=== PATIENT | female | born 1930 | race Caucasian/White ===

== ENCOUNTER 2016-07-16 16:14 | Emergency (ER) | payer MEDICARE, BC ==
[2016-07-16] MEDS ORDERED: CELEXA 20MG20 MG/TA1 PO (16:59)
[2016-07-16] MEDS ORDERED: DULCOLAX10 M1 RC (17:00)
[2016-07-16] MEDS ORDERED: SYNTHROID0.05 MG PO (17:00)
[2016-07-16] MEDS ORDERED: ZESTRIL20 M1 PO (17:01)
[2016-07-16] MEDS ORDERED: CLOPIDOGREL PO (17:01)
[2016-07-16] MEDS ORDERED: PREPARATION H 81 SUP RC (17:04)
[2016-07-16] MEDS ORDERED: SYSTANE ULTRA 010 M1 OU (17:19)
[2016-07-16] MEDS ORDERED: ULTRAM50 M1 PO (17:20)
[2016-07-16] MEDS ORDERED: ZOCOR20 M1 PO (17:21)
[2016-07-16] MEDS ORDERED: MACROBID 100 M100 MG PO (17:30)
[2016-07-16] MEDS ORDERED: HALDOL 1MG T1 MG/TAB PO (17:30)
[2016-07-16] MEDS ORDERED: ZYRTEC10 M3 PO (17:40)
== END 2016-07-16 17:48 | disposition home or self-care (01) ==
LOC: ED 16:14
DX: N39.0 Urinary tract infection, site not specified (principal); R41.0 Disorientation, unspecified; J98.11 Atelectasis
CPT/HCPCS: A4353

== ENCOUNTER 2016-07-17 18:11 | Inpatient (IN) | payer MEDICARE, BC ==
[~2016-07-17 18:11] MED LIST changes: -CEFDINIR250 MG/5 M PO; -ROCEPHIN VIA1 G/VIAL IM
[2016-07-17 20:10] VITALS: BP 131/89
[2016-07-17 20:20] VITALS: BP 131/89
[2016-07-17 22:29] VITALS: BP 169/119
[2016-07-17 22:32] VITALS: BP 169/119
[2016-07-18 03:03] VITALS: BP 156/68
[2016-07-18 06:29] VITALS: BP 162/70
[2016-07-18 11:37] VITALS: BP 174/66
[2016-07-18 15:28] VITALS: BP 164/68
[2016-07-18 18:04] VITALS: BP 134/66
[2016-07-18 22:18] VITALS: BP 176/77
[2016-07-19 02:12] VITALS: BP 186/66
[2016-07-19 06:33] VITALS: BP 178/78
[2016-07-19 11:00] VITALS: BP 163/75
[2016-07-19] MEDS ORDERED: CEFDINIR250 MG/5 M PO (13:00)
[2016-07-19] MEDS ORDERED: ROCEPHIN VIA1 G/VIAL IM (13:07)
[2016-07-19 14:19] VITALS: BP 179/79
== END 2016-07-19 15:30 | disposition hospice, home (50) | DRG 689 ==
LOC: ED 18:11 → MED/SURG 18:59 → EDSTATUS 19:24 → MED/SURG 07-19 15:30
PROVIDERS: ADMIT Nurse Practitioner Family
DX: N39.0 Urinary tract infection, site not specified (principal); I21.4 Non-ST elevation (NSTEMI) myocardial infarction; F03.91 Unspecified dementia, unspecified severity, with behavioral disturbance; Z66 Do not resuscitate; Z51.5 Encounter for palliative care; F05 Delirium due to known physiological condition; I10 Essential (primary) hypertension; F32.9 Major depressive disorder, single episode, unspecified; K21.9 Gastro-esophageal reflux disease without esophagitis; R73.9 Hyperglycemia, unspecified; Z79.02 Long term (current) use of antithrombotics/antiplatelets; Z86.73 Personal history of transient ischemic attack (TIA), and cerebral infarction without residual deficits
CPT/HCPCS: J0696; J1650; J7030

== ENCOUNTER → 2016-07-17 | Outpatient (CLI) | payer MEDICARE, BC ==
[~2016-07-17] MED LIST: CEFDINIR250 MG/5 M PO; CELEXA 20MG20 MG/TA1 PO; CLOPIDOGREL PO; DULCOLAX10 M1 RC; HALDOL 1MG T1 MG/TAB PO; MACROBID 100 M100 MG PO; PREPARATION H 81 SUP RC; ROCEPHIN VIA1 G/VIAL IM; SYNTHROID0.05 MG PO; SYSTANE ULTRA 010 M1 OU; ULTRAM50 M1 PO; ZESTRIL20 M1 PO; ZOCOR20 M1 PO; ZYRTEC10 M3 PO
[2016-07-17 15:51] VITALS: BP 126/60
[2016-07-17 18:14] VITALS: BP 131/89
== END ==
LOC: AMSURD 15:45 → MSO 15:45
DX: E86.0 Dehydration (principal); R11.10 Vomiting, unspecified; R41.82 Altered mental status, unspecified
CPT/HCPCS: J0696; J2405; J7030

== ENCOUNTER → 2016-08-16 | Outpatient (CLI) | payer OTHER ==
[2016-07-19 14:19] VITALS: BP 179/79
[~2016-08-16] MED LIST changes: +CEFDINIR250 MG/5 M PO; +ROCEPHIN VIA1 G/VIAL IM
== END ==
LOC: LAB 07:50
DX: R41.0 Disorientation, unspecified (principal); R41.4 Neurologic neglect syndrome

== ENCOUNTER → 2016-10-18 | Outpatient (CLI) | payer MEDICARE, BC | LOC: LAB 12:58 → EDSTATUS 14:41 | DX: N39.0 Urinary tract infection, site not specified (principal) ==

== ENCOUNTER 2017-02-06 17:48 | Emergency (ER) | payer MEDICARE, BC ==
[~2017-02-06] VITALS: Wt 89.5 kg
[2017-02-06] MEDS ORDERED: ANUSOL HC CREAM30 GM REC (18:19)
[2017-02-06] MEDS ORDERED: LORAZEPAM INT2 MG/ML PO (18:24)
== END 2017-02-06 19:39 | disposition home or self-care (01) ==
LOC: ED 17:48
DX: Z04.3 Encounter for examination and observation following other accident (principal); F03.91 Unspecified dementia, unspecified severity, with behavioral disturbance; X58.XXXA Exposure to other specified factors, initial encounter; Y92.129 Unspecified place in nursing home as the place of occurrence of the external cause; Z86.73 Personal history of transient ischemic attack (TIA), and cerebral infarction without residual deficits

== ENCOUNTER → 2017-02-13 | Outpatient (CLI) | payer MEDICARE, BC ==
[~2017-02-13] MED LIST changes: +ANUSOL HC CREAM30 GM REC; +LORAZEPAM INT2 MG/ML PO
[2017-02-13 17:20] LABS: PH-URINE 6.5 (5.0 - 8.0); URINE APPEARANCE CLEAR; URINE BILIRUBIN NEGATIVE (NEGATIVE); URINE BLOOD NEGATIVE (NEGATIVE); URINE COLOR YELLOW; URINE GLUCOSE NEGATIVE (NEGATIVE); URINE KETONE NEGATIVE (NEGATIVE); URINE LEUKOCYTE ESTERASE NEGATIVE (NEGATIVE); URINE NITRATE NEGATIVE (NEGATIVE); URINE PROTEIN(semi-quant) NEGATIVE (NEGATIVE); URINE UROBILINOGEN NORMAL (NORMAL); URINE WBC 0-1 /hpf (0-3)
== END ==
LOC: LAB 17:15
PROVIDERS: Family Medicine
DX: R30.0 Dysuria (principal)

== ENCOUNTER 2017-07-10 13:57 | Emergency (ER) | payer MEDICARE, BC ==
[~2017-07-10] VITALS: Ht 167.6 cm; Wt 86.2 kg
[2017-07-10 14:32] LABS: BASO # 0.1 (0.02-0.10); EOS # 0.2 (0.04-0.40); EOS % 3.2 % (1.0-5.0); HEMATOCRIT 41.9 % (37.0-47.0); HEMOGLOBIN 13.8 g/dL (12.5-16.0); LYMPH# 2.4 (1.50-4.00); MEAN CELL VOLUME 99 fl (78-100); MEAN CORPUSCULAR HEMOGLOBIN 33 pg (27-31); MEAN CORPUSCULAR HGB CONC 33 g/dL (33-37); MEAN PLATELET VOLUME 9.9 fl (7.4-10.4); MONO # 0.8 (0.20-0.80); NEU # 4.1 (1.40-6.50); PLATELET COUNT 194 K/mm3 (130-400); RED BLOOD COUNT 4.24 M/mm3 (4.10-5.30); RED CELL DISTRIBUTION WIDTH 12.4 % (11.5-14.5); WHITE BLOOD COUNT 7.6 K/mm3 (4.8-10.8)
[2017-07-10 14:46] LABS: ALBUMIN 3.4 g/dL (3.5-5.0); BUN/CREATININE RATIO 10.5 (6.0-26.0); CALCIUM 8.7 mg/dL (8.4-10.2); POTASSIUM 4.4 mmol/L (3.6-5.0); TOTAL BILIRUBIN 0.3 mg/dL (0.2-1.3); TOTAL PROTEIN 7.1 g/dL (6.3-8.2)
[2017-07-10] MEDS ORDERED: SYSTANE 0.3-0.415 ML OU (14:59)
[2017-07-10] MEDS ORDERED: GUAIFEN-CODEIN118 ML PO (15:00)
[2017-07-10 15:05] LABS: URINE APPEARANCE CLEAR; URINE COLOR YELLOW; URINE GLUCOSE NEGATIVE (NEGATIVE); URINE PROTEIN(semi-quant) NEGATIVE (NEGATIVE)
[2017-07-10 15:06] LABS: URINE BILIRUBIN NEGATIVE (NEGATIVE); URINE BLOOD NEGATIVE (NEGATIVE); URINE KETONE NEGATIVE (NEGATIVE); URINE LEUKOCYTE ESTERASE TRACE (NEGATIVE); URINE NITRATE NEGATIVE (NEGATIVE); URINE UROBILINOGEN NORMAL (NORMAL)
== END 2017-07-10 15:54 | disposition home or self-care (01) ==
LOC: ED 13:57
PROVIDERS: Family Medicine; Physician Assistant
DX: F01.51 Vascular dementia, unspecified severity, with behavioral disturbance (principal); Z91.81 History of falling; E03.9 Hypothyroidism, unspecified; Z91.09 Other allergy status, other than to drugs and biological substances

== ENCOUNTER 2017-08-04 15:02 | Emergency (ER) | payer MEDICARE, BC ==
[~2017-08-04 15:02] MED LIST changes: +GUAIFEN-CODEIN118 ML PO; +SYSTANE 0.3-0.415 ML OU
[2017-08-04 16:02] LABS: BASO # 0.1 (0.02-0.10); EOS # 0.1 (0.04-0.40); EOS % 0.6 % (1.0-5.0); HEMATOCRIT 47.1 % (37.0-47.0); HEMOGLOBIN 15.3 g/dL (12.5-16.0); MEAN CELL VOLUME 100 fl (78-100); MEAN CORPUSCULAR HEMOGLOBIN 33 pg (27-31); MEAN CORPUSCULAR HGB CONC 33 g/dL (33-37); MEAN PLATELET VOLUME 10.7 fl (7.4-10.4); MONO # 1.5 (0.20-0.80); PLATELET COUNT 239 K/mm3 (130-400); RED BLOOD COUNT 4.69 M/mm3 (4.10-5.30); RED CELL DISTRIBUTION WIDTH 12.4 % (11.5-14.5); WHITE BLOOD COUNT 15.1 K/mm3 (4.8-10.8)
[2017-08-04 16:06] LABS: NEU # 11.4 (1.40-6.50)
[2017-08-04 16:11] LABS: ALBUMIN 3.9 g/dL (3.5-5.0); BUN/CREATININE RATIO 33.6 (6.0-26.0); CALCIUM 9.2 mg/dL (8.4-10.2); POTASSIUM 4.1 mmol/L (3.6-5.0); TOTAL BILIRUBIN 0.8 mg/dL (0.2-1.3); TOTAL PROTEIN 8.3 g/dL (6.3-8.2)
[2017-08-04 16:37] LABS: PH-URINE 5.5 (5.0 - 8.0); URINE APPEARANCE CLOUDY; URINE COLOR YELLOW; URINE GLUCOSE NEGATIVE (NEGATIVE); URINE KETONE NEGATIVE (NEGATIVE); URINE PROTEIN(semi-quant) 1+ mg/dL (NEGATIVE)
[2017-08-04 16:38] LABS: URINE BILIRUBIN NEGATIVE (NEGATIVE); URINE BLOOD TRACE (NEGATIVE); URINE LEUKOCYTE ESTERASE 1+ (NEGATIVE); URINE MUCUS PRESENT (NOT PRESENT); URINE NITRATE NEGATIVE (NEGATIVE); URINE UROBILINOGEN 1 mg/dL (NORMAL)
[2017-08-04 20:40] VITALS: BP 148/78
== END 2017-08-04 20:40 ==
LOC: ED 15:02
PROVIDERS: Physician Assistant
DX: N39.0 Urinary tract infection, site not specified (principal); F03.91 Unspecified dementia, unspecified severity, with behavioral disturbance; I25.10 Atherosclerotic heart disease of native coronary artery without angina pectoris; I10 Essential (primary) hypertension; Z91.09 Other allergy status, other than to drugs and biological substances; F32.9 Major depressive disorder, single episode, unspecified; F41.9 Anxiety disorder, unspecified; E03.9 Hypothyroidism, unspecified
CPT/HCPCS: J0696; J7030

== ENCOUNTER → 2017-08-15 | Outpatient (CLI) | payer MEDICARE, BC ==
[2017-08-04 20:40] VITALS: BP 148/78
[2017-08-15 08:35] LABS: PH-URINE 6.5 (5.0 - 8.0); URINE APPEARANCE CLEAR; URINE BILIRUBIN NEGATIVE (NEGATIVE); URINE BLOOD NEGATIVE (NEGATIVE); URINE COLOR YELLOW; URINE GLUCOSE NEGATIVE (NEGATIVE); URINE KETONE NEGATIVE (NEGATIVE); URINE LEUKOCYTE ESTERASE NEGATIVE (NEGATIVE); URINE NITRATE NEGATIVE (NEGATIVE); URINE PROTEIN(semi-quant) NEGATIVE (NEGATIVE); URINE UROBILINOGEN NORMAL (NORMAL)
[2017-08-15 08:36] LABS: URINE WBC 0-1 /hpf (0-3)
== END ==
LOC: LAB 06:00
PROVIDERS: Nurse Practitioner Family
DX: Z87.440 Personal history of urinary (tract) infections (principal)

== ENCOUNTER → 2017-08-21 | Outpatient (CLI) | payer MEDICARE, BC ==
[2017-08-04 20:40] VITALS: BP 148/78
[2017-08-21 14:41] LABS: ALBUMIN 3.3 g/dL (3.5-5.0); BUN/CREATININE RATIO 17.2 (6.0-26.0); CALCIUM 9.1 mg/dL (8.4-10.2); POTASSIUM 4.5 mmol/L (3.6-5.0); TOTAL BILIRUBIN 0.4 mg/dL (0.2-1.3); TOTAL PROTEIN 6.9 g/dL (6.3-8.2)
[2017-08-21 14:43] LABS: EOS # 0.1 (0.04-0.40); EOS % 1.7 % (1.0-5.0); HEMATOCRIT 43.4 % (37.0-47.0); HEMOGLOBIN 14.4 g/dL (12.5-16.0); LYMPH# 1.5 (1.50-4.00); MEAN CELL VOLUME 99 fl (78-100); MEAN CORPUSCULAR HEMOGLOBIN 33 pg (27-31); MEAN CORPUSCULAR HGB CONC 33 g/dL (33-37); MEAN PLATELET VOLUME 10.3 fl (7.4-10.4); MONO # 0.6 (0.20-0.80); NEU # 5.8 (1.40-6.50); PLATELET COUNT 262 K/mm3 (130-400); RED BLOOD COUNT 4.38 M/mm3 (4.10-5.30); RED CELL DISTRIBUTION WIDTH 12.7 % (11.5-14.5); WHITE BLOOD COUNT 8.1 K/mm3 (4.8-10.8)
== END ==
LOC: LAB 13:55
PROVIDERS: Family Medicine
DX: G81.94 Hemiplegia, unspecified affecting left nondominant side (principal); E03.9 Hypothyroidism, unspecified; K21.9 Gastro-esophageal reflux disease without esophagitis; F01.51 Vascular dementia, unspecified severity, with behavioral disturbance; R23.8 Other skin changes

== ENCOUNTER → 2017-08-22 | Outpatient (CLI) | payer MEDICARE, BC ==
[2017-08-04 20:40] VITALS: BP 148/78
[2017-08-22 09:51] LABS: URINE APPEARANCE HAZY; URINE BILIRUBIN NEGATIVE (NEGATIVE); URINE BLOOD NEGATIVE (NEGATIVE); URINE COLOR YELLOW; URINE GLUCOSE NEGATIVE (NEGATIVE); URINE KETONE NEGATIVE (NEGATIVE); URINE NITRATE NEGATIVE (NEGATIVE); URINE PROTEIN(semi-quant) NEGATIVE (NEGATIVE); URINE UROBILINOGEN NORMAL (NORMAL)
[2017-08-22 09:52] LABS: URINE LEUKOCYTE ESTERASE 2+ (NEGATIVE); URINE WBC >50 /hpf (0-3)
== END ==
LOC: LAB 08:30
PROVIDERS: Physician Assistant Medical
DX: G81.94 Hemiplegia, unspecified affecting left nondominant side (principal); R23.8 Other skin changes; N39.0 Urinary tract infection, site not specified